=== PATIENT | male | born 1950 | race African-American/Black ===

== ENCOUNTER 2020-12-23 10:37 | Emergency (ER) | payer SELFPAY ==
[~2020-12-23] VITALS: Ht 167.6 cm; Wt 68.0 kg
[2020-12-23 10:57] VITALS: BP 133/81
[2020-12-23] MEDS ORDERED: CEPH500C2 MT (13:31)
== END 2020-12-23 14:00 | disposition home or self-care (01) ==
LOC: ER 10:37
DX: T83.018A Breakdown (mechanical) of other urinary catheter, initial encounter (principal); R33.9 Retention of urine, unspecified; Y82.8 Other medical devices associated with adverse incidents; Y92.9 Unspecified place or not applicable; Z99.2 Dependence on renal dialysis; Z91.013 Allergy to seafood
CPT/HCPCS: 99283